=== PATIENT | male | born 1950 ===

== ENCOUNTER 2017-07-14 19:59 | Emergency (ER) | payer BC ==
[2017-07-14 20:21] VITALS: BP 146/78
--- NOTE | 2017-07-14 20:35 | ED ---
HPI Febrile Illness - HPI Summary HPI Summary: 67 yo WM c/o f/c associated with sore throat cough with green sputum x 3 days - History of Current Complaint Chief Complaint: UCGeneralIllness Time Seen by Provider: 07/14/17 20:27 Hx Obtained From: Patient Timing: Constant, Lasting Days Initial Severity: Moderate Current Severity: Moderate Pain Intensity: 0 Aggravating Factors: Unknown Alleviating Factors: Nothing Associated Signs and Symptoms: Negative - Allergy/Home Medications Allergies/Adverse Reactions: Allergies Allergy/AdvReac Type Severity Reaction Status Date / Time No Known Allergies Allergy Verified 07/14/17 20:21 PMH/Surg Hx/FS Hx/Imm Hx Previously Healthy: Yes Endocrine/Hematology History: Reports: Hx Diabetes - type 2 Denies: Hx Thyroid Disease Cardiovascular History: Denies: Hx Hypertension Respiratory History: Denies: Hx Asthma, Hx Chronic Obstructive Pulmonary Disease (COPD) GI History: Denies: Hx Ulcer - Surgical History Surgery Procedure, Year, and Place: nasal polyps removed Infectious Disease History: Yes Infectious Disease History: Reports: Hx Hepatitis - as a child Denies: Hx Human Immunodeficiency Virus (HIV), History Other Infectious Disease, Traveled Outside the in Last 30 Days - Social History Alcohol Use: Rare Substance Use Type: Reports: None Smoking Status (MU): Former Smoker Type: Cigarettes Have You Smoked in the Last Year: No Review of Systems Positive: Fever, Chills, Fatigue Eyes: Negative ENT: Negative Cardiovascular: Negative Positive: Cough - with green sputum Gastrointestinal: Negative Genitourinary: Negative Musculoskeletal: Negative Skin: Negative Neurological: Negative All Other Systems Reviewed And Are Negative: Yes Physical Exam Triage Information Reviewed: Yes Vital Signs On Initial Exam: Initial Vitals Temp Pulse Resp BP Pulse Ox 38.7 C 95 20 146/78 95 07/14/17 20:14 07/14/17 20:14 07/14/17 20:14 07/14/17 20:14 07/14/17 20:14 Vital Signs Reviewed: Yes Appearance: Positive: Ill-Appearing Skin: Positive: Warm Eyes: Positive: Normal ENT: Positive: Normal ENT inspection Respiratory/Lung Sounds: Positive: Rhonchi - with cough Cardiovascular: Positive: Tachycardia, S1, S2 Abdomen Description: Positive: Soft Musculoskeletal: Positive: Normal Neurological: Positive: Normal Psychiatric: Positive: Normal Diagnostics - Vital Signs Vital Signs Temp Pulse Resp BP Pulse Ox 07/14/17 20:14 38.7 C 95 20 146/78 95 - Laboratory Lab Statement: Any lab studies that have been ordered have been reviewed, and results considered in the medical decision making process. Course/Dx - Course Course Of Treatment: Rapid Flu A positive, CXR with B/L perihilar infiltrates, may progress to PNA from bronchitis. Will double cover with Tamiflu and Levaquin - Diagnoses Provider Diagnoses: Influenza A with pneumonia Discharge - Sign-Out/Discharge Documenting (check all that apply): Discharge/Admit/Transfer - Discharge Plan Condition: Stable Disposition: HOME Prescriptions: Levofloxacin TAB* [Levaquin TAB*] 750 mg PO DAILY 7 Days #7 tab Oseltamivir CAP* [Tamiflu CAP*] 75 mg PO BID 5 Days #10 cap Patient Education Materials: Influenza (ED), Acute Bronchitis (ED) Referrals: Abdirashid Byrd MD [Primary Care Provider] - - Billing Disposition and Condition Condition: STABLE Disposition: HOME
[2017-07-14] MEDS ORDERED: Acetaminophen TAB* 325 MG PO ONE (20:41)
[2017-07-14] MEDS ORDERED: Levofloxacin TAB* 250 MG PO ONE (21:08)
[2017-07-14] MEDS ORDERED: Oseltamivir CAP* 75 MG CAP PO ONE (21:08)
--- NOTE | 2017-07-14 21:21 | RAD ---
Indication: Cough. 2 views of the chest including dual energy PA views demonstrate no mediastinal shift. Heart is of normal size and configuration. Lung stoner demonstrate no pleural fluid, pneumonia or pneumothorax. IMPRESSION: No active cardiopulmonary disease is noted.
== END 2017-07-14 21:05 | disposition home or self-care (01) ==
LOC: UCEAST 19:59
DX: J10.1 Influenza due to other identified influenza virus with other respiratory manifestations (principal); J18.9 Pneumonia, unspecified organism; E11.9 Type 2 diabetes mellitus without complications; Z79.84 Long term (current) use of oral hypoglycemic drugs; Z79.4 Long term (current) use of insulin; Z87.891 Personal history of nicotine dependence
CPT/HCPCS: 71046; 87502; 99212; A9270-GY; G0463

== ENCOUNTER 2017-12-02 07:30 | Inpatient (IN) | payer BC, MEDICARE ==
--- NOTE | 2017-11-27 14:25 | HP ---
HISTORY AND PHYSICAL: DATE OF ADMISSION/SURGERY: 12/02/17 DATE OF OFFICE VISIT: 11/25/17 SURGEON: Danae Moura MD * (DICTATED BY BLAS TITUS) PROCEDURE: Right total knee arthroplasty. CHIEF COMPLAINT: Right knee pain. HISTORY OF PRESENT ILLNESS: Mr. Eugene is a 67-year-old gentleman with complaints of right knee pain. He has failed conservative treatment and elected to proceed with a right total knee arthroplasty. PAST MEDICAL HISTORY: Diabetes, hypertension, BPH, sleep apnea, and hyperlipidemia. PAST SURGICAL HISTORY: Kidney stone removal and nasal polyp removal. CURRENT MEDICATIONS: 1. Losartan potassium 50 mg daily. 2. Pravastatin sodium 80 mg q.h.s. 3. Potassium citrate 10 mEq 2 times a day. 4. Glipizide ER 10 mg. 5. Hydrochlorothiazide 12.5 mg daily. 6. Metformin 1000 mg 2 times a day. 7. Lantus. 8. Aleve. 9. Aspirin 81 mg. ALLERGIES: No known drug allergies. FAMILY HISTORY: Diabetes and heart disease. SOCIAL HISTORY: He is a 67-year-old gentleman, lives with his . He does not smoke or use drugs, uses occasional alcohol. REVIEW OF SYSTEMS: A complete 14-point review of systems was reviewed with the patient. It was positive for diabetes and he reports having hepatitis as a child. He denies a history of DVT, PE, HIV, or anesthesia problems. PHYSICAL EXAMINATION GENERAL: He is well developed, well nourished, in no acute distress. VITAL SIGNS: He stands 68 inches tall, weighs 293 pounds. His blood pressure is 138/82, his heart rate is 84. HEENT: Normocephalic, atraumatic. NECK: Supple. No palpable lymph nodes. PULMONARY: The lungs are clear to auscultation bilaterally. CARDIO: Regular rate and rhythm. Strong S1, S2. ABDOMEN: Soft, nontender, and nondistended. MUSCULOSKELETAL: Right lower extremity: The skin is intact. There are no open wounds or abrasions. There is a moderate joint effusion. Range of motion is 20 to 110 degrees of flexion with patellofemoral crepitus. He has a 2+ dorsalis pedis pulse, intact sensation in his lower extremity. Muscle group strengths are intact at 5/5. NEUROLOGICAL: He is alert and oriented x3. ASSESSMENT AND PLAN: Mr. Eugene is a 67-year-old gentleman with end-stage osteoarthritis of the right knee. He has failed conservative treatment and elected to proceed with a right total knee arthroplasty. The surgery is scheduled for 12/02/[address] Moura discussed the risks and benefits of the surgery and he has elected to proceed. He will follow up with Dr. Moura 2 weeks after the surgery. We will use TXA with this patient. BLAS TITUS [id number]/[facility] #: [id number] MTDJosé Miguel
[~2017-12-02 07:30] MED LIST: Buffered Lidocaine 0.9% SYRIN* 5 ML/SYR SYRINGE INTRADERM ONE; Tranexamic Acid 1,000 MG in NS 0.9% 50 ML* (outpatient use) IV SCH
[2017-12-02] MEDS ORDERED: ceFAZolin 2 GM in NS PREMIX(*) 2 GM/100 ML BAG IVPB ONE (09:08)
[2017-12-02] MEDS ORDERED: fentaNYL* 50 MCG/ML 2 ML VIAL (100 MCG VIAL) ONE (09:26)
[2017-12-02] MEDS ORDERED: Midazolam* 1 MG/ML 2 ML VIAL (2 MG) ONE (09:26)
[2017-12-02] MEDS ORDERED: Propofol* 10 MG/ML 20 ML BTL IV PUSH ONE ×3 (09:57→13:18)
[2017-12-02] MEDS ORDERED: Lidocaine 1%* 5 ML VIAL ONE (10:27)
[2017-12-02] MEDS ORDERED: ROPIVACAINE 5 MG/ML 30 ML BTL (0.5%) ONE ×2 (10:27→10:31)
[2017-12-02] MEDS ORDERED: Lidocaine 1% INJ* 10 MG/ML 30 ML SDV ONE (11:11)
[2017-12-02] MEDS ORDERED: Acetaminophen TAB* 325 MG PO PRN (11:57)
[2017-12-02] MEDS ORDERED: diPHENhydraMINE IV* 50 MG/ML 1 ml VIAL (BENADRYL) IV PRN ×2 (11:57→13:59)
[2017-12-02] MEDS ORDERED: HYDROcodone/ACETAMIN 5-325 MG* 1 TAB PO PRN (11:57)
[2017-12-02] MEDS ORDERED: DiMENhydriNATE IV* 50 MG/ML VIAL IV PUSH PRN (11:57)
[2017-12-02] MEDS ORDERED: Naloxone* 0.4 MG/ML 1 ML VIAL IV PRN (11:57)
[2017-12-02] MEDS ORDERED: Morphine INJ* 2 MG/ML 1 ML SYRINGE (TWO MG - NEW SYRINGE VERSION) IV PRN (11:57)
[2017-12-02] MEDS ORDERED: Ondansetron INJ* 2 MG/ML VIAL IV PRN ×2 (11:57→13:59)
[2017-12-02] MEDS ORDERED: fentaNYL* 50 MCG/ML 2 ML VIAL (100 MCG VIAL) IV PRN (11:57)
[2017-12-02] MEDS ORDERED: Lidocaine 2% PF * 5 ML VIAL ONE (12:23)
[2017-12-02] MEDS ORDERED: Bupivacaine-MPF SPINAL* 7.5 MG/ML - 2ML AMP ONE (13:03)
[2017-12-02] MEDS ORDERED: Magnesium Hydroxide LIQ* 30 ML UDC PO PRN (13:59)
[2017-12-02] MEDS ORDERED: Polyethylene Glycol 3350* 17 GM PACKET PO PRN (13:59)
[2017-12-02] MEDS ORDERED: oxyCODONE/Acetamin 5/325 MG* TAB PO PRN (13:59)
[2017-12-02] MEDS ORDERED: Ondansetron TAB* 4 MG PO PRN (13:59)
[2017-12-02] MEDS ORDERED: Bisacodyl SUPP* 10 MG SUPP PR PRN (13:59)
[2017-12-02] MEDS ORDERED: Dextrose 50% Syringe 50 ML* 25 GM/50 ML SYRINGE IV PUSH PRN (14:50)
--- NOTE | 2017-12-02 15:02 | RAD ---
INDICATION: Status post total right knee replacement surgery. COMPARISON: Comparison is made with a prior study from October 21, 2017. TECHNIQUE: 2 views of the right knee were obtained. FINDINGS: The patient is status post total right knee replacement surgery. The bones and prostheses are in normal alignment. There is no evidence for loosening. IMPRESSION: STATUS POST TOTAL RIGHT KNEE REPLACEMENT SURGERY.
[2017-12-02 15:03] LABS: Urine Appearance Turbid; Urine Blood Negative (Negative); Urine Color Yellow; Urine Ketones Negative (Negative); Urine Protein Negative (Negative); Urine Specific Gravity 1.025 (1.010-1.030); Urine Urobilinogen Negative (Negative)
[2017-12-02] MEDS ORDERED: diPHENhydraMINE IV* 50 MG/ML 1 ml VIAL (BENADRYL) ONE (15:37)
--- NOTE | 2017-12-02 15:40 | PN ---
Progress Note - Progress Note Date of Service: 12/02/17 Note: Patient resting comfortably. no complaints of pain, denies SOB/chest pain, incision c/d/i; able to dorsi flex/plantar flex, 2+ DP pulse, intact sensation
[2017-12-02] MEDS: Acetaminophen TAB* 325 MG PO SCH ×2 (16:14→21:44)
[2017-12-02] MEDS: Insulin LISPRO* 1 UNITS UNIT SUBCUT SCH ×2 (16:55→21:33)
[2017-12-02] MEDS: oxyCODONE TAB* 5 MG TAB PO PRN ×2 (16:59→23:03)
[2017-12-02] MEDS ORDERED: metFORMIN* 1,000 MG TAB PO SCH (17:00)
[2017-12-02] MEDS ORDERED: Warfarin TAB(*) 6 MG PO ONE (17:00)
[2017-12-02] MEDS: Losartan TAB* 25 MG PO SCH (17:09)
[2017-12-02] MEDS: Hydrochlorothiazide TAB* 25 MG PO SCH (17:09)
[2017-12-02] MEDS ORDERED: HYDROCHLOROTHIAZIDE PO SCH ×2 (18:00)
[2017-12-02] MEDS ORDERED: LOSARTAN PO SCH ×2 (18:00)
[2017-12-02] MEDS: Cyclobenzaprine TAB* 10 MG PO PRN ×2 (18:14→23:03)
[2017-12-02] MEDS: Morphine INJ* 2 MG/ML 1 ML SYRINGE (TWO MG - NEW SYRINGE VERSION) IV PRN ×3 (18:38→23:47)
[2017-12-02] MEDS: oxyCODONE/Acetamin 5/325 MG* TAB PO PRN (19:36)
[2017-12-02] MEDS: ceFAZolin 1 GM in Dextrose (*) 1 GM/50 ML BAG IVPB SCH (19:46)
[2017-12-02] MEDS: traMADol TAB* 50 MG PO PRN (20:24)
[2017-12-02] MEDS ORDERED: Insulin GLARGINE(*) 1 UNITS UNIT SUBCUT SCH ×2 (21:00)
[2017-12-02] MEDS: Docusate CAP* 100 MG PO SCH (21:31)
[2017-12-02] MEDS: Magnesium Hydroxide LIQ* 30 ML UDC PO SCH (21:31)
[2017-12-02] MEDS: Atorvastatin* 20 MG TAB PO SCH (21:44)
[2017-12-02] MEDS: Potassium Citrate (NF) 10 MEQ TAB PO SCH (21:44)
--- NOTE | 2017-12-02 23:33 | CONS ---
CC: Dr. Cleary; Dr. Danae Moura CONSULTATION REPORT: DATE OF CONSULT: 12/02/17 PRIMARY CARE PROVIDER: Dr. Cleary. REQUESTING PHYSICIAN: Dr. Danae Moura. HISTORY OF PRESENT ILLNESS: Mr. Eugene is a 67-year-old male with a past medical history of obstr uctive sleep apnea, on CPAP; arthritis; morbid obesity with a BMI of 45; nephrolithiasis; history of tobacco abuse; BPH; type 2 diabetes; hyperlipidemia, who was being followed as an outpatient by Dr. Tila christian with complaints of right knee pain. He failed conservative treatment and was admitted today for an elective right total knee arthroplasty. The hospitalist service was consulted to help manage his comorbidities. The patient was evaluated in the PACU and he is alert and awake and states that he is feeling well. Denies any pain, shortness of breath, palpitations. PAST MEDICAL HISTORY: 1. Obstructive sleep apnea, on CPAP. 2. Osteoarthritis. 3. Morbid obesity with a BMI of 45. 4. Nephrolithiasis. 5. History of tobacco abuse. 6. BPH. 7. Type 2 diabetes. 8. Hyperlipidemia. 9. Hypertension. MEDICATION LIST: 1. Aspirin 81 mg p.o. at bedtime. 2. Glipizide 10 mg p.o. q.a.m. 3. Losartan/hydrochlorothiazide 100/12.5 one tablet p.o. at bedtime. 4. Metformin 1000 mg p.o. b.i.d. 5. Naproxen 440 mg p.o. daily. 6. Potassium citrate 10 mEq p.o. b.i.d. 7. Pravastatin 80 mg p.o. at bedtime. 8. Lantus 75 units subcutaneously at bedtime. ALLERGIES: No known drug allergies. FAMILY HISTORY: The patient's mother had a history of hypertension and diabetes. The patient's fathe r had a history of heart disease. Sister and brother both have diabetes. SOCIAL HISTORY: The patient was a smoker, 2 packs a day for 40 years and he quit in 2006. He has 1 to 2 beers a week. No history of drug use. Surrogate decision maker is his , Kylah Eugene, shania omar number is [phone]. REVIEW OF SYSTEMS: A 14-point review of systems was performed and all the pertinent negative and pos itive findings are in the HPI. PHYSICAL EXAM: Vital Signs: Temperature 98.2, heart rate is 64, respiratory rate 17, oxygen saturat ion is 98% on room air, blood pressure is 123/68. General: The patient is a pleasant, morbidly obes e gentleman, lying in bed, in no acute distress. HEENT: Pupils are equal. Moist mucous membranes. CVS: Normal S1, S2. Regular rate and rhythm. Chest: Breath sounds bilaterally with no added sound s. Abdomen is obese. Bowel sounds present. Extremities: The patient has a Cryo unit to the right k nee. Good capillary refills. Sensation is intact. Neuro: He is alert and oriented x3. Able to mo ve all 4 extremities. ASSESSMENT AND PLAN: Mr. Eugene is a 67-year-old male with a past medical history of obstructive sleep apnea, on CPAP; arthritis; morbid obesity with a BMI of 45; nephrolithiasis; prior history of t obacco abuse; benign prostatic hypertrophy; type 2 diabetes; hyperlipidemia, who was admitted for an elective right total knee arthroplasty. 1. Right total knee arthroplasty. Management will be as per Ortho. 2. Type 2 diabetes. I am going to hold the patient's metformin and glipizide for now. He will be c ontinued on a lower dose Lantus plus lispro sliding scale. Depending on his oral intake and glucose, we will adjust his medication dose. 3. Hypertension. We will continue his losartan/hydrochlorothiazide with holding parameters and we w ill monitor his blood pressure. 4. Obstructive sleep apnea. The patient brought his CPAP from home and he will wear it at night and during naps. 5. Hyperlipidemia. We will continue pravastatin. 6. DVT prophylaxis will be with Lovenox and warfarin as per Ortho. 7. Code status is full. TIME SPENT: Approximately 40 minutes was spent with the patient and 's interview, medical records review, physical examination to complete this consultation, more than half of this time was spent [id number] with the patient and coordination of care. [id number]/[facility] #: [id number]
[2017-12-03] MEDS: oxyCODONE/Acetamin 5/325 MG* TAB PO PRN ×5 (02:45→21:48)
[2017-12-03] MEDS: ceFAZolin 1 GM in Dextrose (*) 1 GM/50 ML BAG IVPB SCH ×2 (02:52→12:24)
[2017-12-03] MEDS: Acetaminophen TAB* 325 MG PO SCH ×3 (04:56→22:01)
[2017-12-03 06:00] LABS: Hematocrit 36 % (42-52); Hemoglobin 12.5 g/dl (14.0-18.0); Mean Platelet Volume 8.3 um3 (7.4-10.4); Platelet Count 131 10^3/ul (150-450)
[2017-12-03 06:04] LABS: INR 1.14 (0.77-1.02)
[2017-12-03 06:15] LABS: EGFR Non-African American 100.8 (>60)
[2017-12-03] MEDS: traMADol TAB* 50 MG PO PRN (06:21)
[2017-12-03] MEDS: Potassium Citrate (NF) 10 MEQ TAB PO SCH ×2 (07:28→21:43)
[2017-12-03] MEDS: Docusate CAP* 100 MG PO SCH ×2 (07:33→21:47)
[2017-12-03] MEDS: Magnesium Hydroxide LIQ* 30 ML UDC PO SCH ×2 (07:33→21:48)
[2017-12-03] MEDS: Insulin LISPRO* 1 UNITS UNIT SUBCUT SCH ×6 (08:34→21:50)
[2017-12-03] MEDS: glipiZIDE TAB.XL* 5 MG PO SCH (08:34)
[2017-12-03] MEDS ORDERED: glipiZIDE TAB.XL* 5 MG PO SCH (09:00)
--- NOTE | 2017-12-03 09:26 | PN ---
Progress Note - Progress Note Date of Service: 12/03/17 SOAP: Subjective: [Pt was seen this morning after PT. States he is having some pain from moving about but finds that otherwise he is doing well. He denies any nausea, vomiting , SOB or chest pain.] Objective: [General: A&Ox3, NAD MSK, RLE: Dressing is c/d/i without surrounding erythema. +df/pf. calf is soft and non tender. NVI with a 2+ DP pulse. Vital Signs Temp 99.3 F 12/03/17 02:57 Pulse 67 12/03/17 02:57 Resp 16 12/03/17 08:36 BP 152/57 12/03/17 02:57 Pulse Ox 96 12/03/17 02:57 Intake & Output 12/02/17 12/03/17 12/03/17 18:59 06:59 18:59 Intake Total 2210 2090 230 Output Total 400 1200 Balance 1810 890 230 Weight 287 lb Intake: IV Fluids 1700 990 1GM TRANEXAMIC ACID 100 LR 1500 990 NS 100ML, Cefazolin 2G 100 IVPB 100 ABX - CEFAZOLIN 100 Oral 510 1000 230 Output: Brower 250 1200 Estimated Blood Loss 150 ] Assessment: [POD 1: RTKA ] Plan: [Finish post op abx Continue with PT/OT COntinue with current pain medication Possible DC tomorrow to home INR of 1.14 - lovenox today, warfarin 8mg tonight ]
[2017-12-03] MEDS: oxyCODONE TAB* 5 MG TAB PO PRN (09:52)
--- NOTE | 2017-12-03 11:01 | PN ---
Subjective Date of Service: 12/03/17 Interval History: HOSPITALIST PROGRESS NOTE Patient seen and examined at bedside. He feels well today. Has more pain now as he just returned from his 1st walk with PT. No CP, palpitations, or dyspnea. Tolerating diet well with no N/V. Family History: Unchanged from Admission Social History: Unchanged from Admission Past Medical History: Unchanged from Admission Objective Active Medications: Acetaminophen (Tylenol Tab*) 975 mg PO Q8H [facility] Last Admin: 12/03/17 04:56 Dose: Not Given Atorvastatin Calcium (Lipitor*) 20 mg PO BEDTIME [facility] Last Admin: 12/02/17 21:44 Dose: 20 mg Bisacodyl (Dulcolax Supp*) 10 mg W[place] DAILY PRN PRN Reason: constipation Cyclobenzaprine HCl (Flexeril Tab*) 10 mg PO TID PRN PRN Reason: SPASMS Last Admin: 12/02/17 23:03 Dose: 10 mg Dextrose (D50w Syringe 50 Ml*) 12.5 gm IV PUSH .FOR FS < 60 - SS PRN PRN Reason: FS < 60 Diphenhydramine HCl (Benadryl Iv*) 12.5 mg IV Q6H PRN PRN Reason: PRURITIS Docusate Sodium (Colace Cap*) 100 mg PO BID [facility] Last Admin: 12/03/17 07:33 Dose: 100 mg Enoxaparin Sodium (Lovenox(*)) 40 mg SUBCUT Q24H [facility] Glipizide (Glucotrol Xl*) 5 mg PO DAILY WITH MEAL [facility] Last Admin: 12/03/17 08:34 Dose: 5 mg Hydrochlorothiazide (Hydrodiuril Tab*) 12.5 mg PO 1800 [facility] Last Admin: 12/02/17 17:09 Dose: Not Given Cefazolin Sodium/Dextrose (Kefzol 1 Gm In Dextrose Duplex (*)) 1 gm in 50 mls @ 200 mls/hr IVPB Q8H [facility] Stop: 12/03/17 11:44 Last Admin: 12/03/17 02:52 Dose: 200 mls/hr Lactated Ringer's (Lactated Ringers 1000 Ml Bag*) 1,000 mls @ 100 mls/hr IV PER RATE [facility] Last Admin: 12/03/17 02:45 Dose: 100 mls/hr Insulin Glargine (Lantus(*)) 75 units SUBCUT BEDTIME [facility] Insulin Human Lispro (Humalog*) 0 units SUBCUT ACHS [facility]; Protocol Last Admin: 12/03/17 08:34 Dose: 6 units Lactulose (Lactulose*) 30 ml PO Q6H PRN PRN Reason: constipation Losartan Potassium (Cozaar Tab*) 100 mg PO 1800 [facility] Last Admin: 12/02/17 17:09 Dose: Not Given Magnesium Hydroxide (Milk Of Magnesia Liq*) 30 ml PO BID [facility] Last Admin: 12/03/17 07:33 Dose: 30 ml Magnesium Hydroxide (Milk Of Magnesia Liq*) 30 ml PO Q6H PRN PRN Reason: constipation Morphine Sulfate (Morphine Inj ((Syringe))*) 2 mg IV Q2H PRN PRN Reason: PAIN - SEVERE Last Admin: 12/02/17 23:47 Dose: 2 mg Ondansetron HCl (Zofran Inj*) 4 mg IV Q6H PRN PRN Reason: nausea Ondansetron HCl (Zofran Tab*) 4 mg PO Q6H PRN PRN Reason: NAUSEA Oxycodone HCl (Roxycodone Tab*) 10 mg PO Q4H PRN PRN Reason: SEVERE PAIN Last Admin: 12/03/17 09:52 Dose: 10 mg Oxycodone/Acetaminophen (Percocet 5/325 Tab*) 1 tab PO Q4H PRN PRN Reason: PAIN Oxycodone/Acetaminophen (Percocet 5/325 Tab*) 2 tab PO Q4H PRN PRN Reason: PAIN Last Admin: 12/03/17 07:33 Dose: 2 tab Polyethylene Glycol/Electrolytes (Miralax*) 17 gm PO DAILY PRN PRN Reason: Constipation Potassium Citrate (Urocit-K 10 (Nf)) 10 meq PO BID [facility] Last Admin: 12/03/17 07:28 Dose: Not Given Tramadol HCl (Ultram*) 50 mg PO Q6H PRN PRN Reason: PAIN Last Admin: 12/03/17 06:21 Dose: 50 mg Vital Signs - 8 hr 12/03/17 12/03/17 12/03/17 02:57 04:56 06:21 Temperature 99.3 F Pulse Rate 67 Respiratory 16 16 18 Rate Blood Pressure 152/57 (mmHg) O2 Sat by Pulse 96 Oximetry 12/03/17 12/03/17 12/03/17 07:33 07:40 07:42 Temperature Pulse Rate Respiratory 16 16 16 Rate Blood Pressure (mmHg) O2 Sat by Pulse Oximetry 12/03/17 12/03/17 12/03/17 08:04 08:36 09:52 Temperature 98.9 F Pulse Rate 73 Respiratory 18 16 16 Rate Blood Pressure 139/73 (mmHg) O2 Sat by Pulse 93 Oximetry Oxygen Devices in Use Now: None Appearance: Pleasant morbid obese gentleman sitting up in a chair in NAD. Eyes: No Scleral Icterus Ears/Nose/Mouth/Throat: Mucous Membranes Moist Neck: Trachea Midline Respiratory: Symmetrical Chest Expansion and Respiratory Effort, Clear to Auscultation Cardiovascular: RRR - Normal S1 and S2 Extremities: - - CDI to right knee. Good capillary refill. Calf is soft and not tender Neurological: Alert and Oriented x 3, NL Muscle Strength and Tone Result Diagrams: 12/03/17 05:33 12/03/17 05:33 Assess/Plan/Problems-Billing Assessment: Mr. Eugene is a 67 yo M with PMH of morbid obesity with BMI 42, HTN, HLD, DM , LINDA on CPAP, BPH, admitted for elective right TKR. - Patient Problems (1) History of total right knee replacement Comment: - Management as per Ortho. (2) Type 2 diabetes mellitus Comment: - Increase Lantus to 75 units, resume Glipizide and continue Lispro SS. (3) HTN (hypertension) Comment: - Controlled. - Continue Losartan/HCTZ. (4) HLD (hyperlipidemia) Comment: - Continue statin. (5) LINDA (obstructive sleep apnea) Comment: - Continue CPAP at night and for naps. (6) DVT prophylaxis Comment: - Lovenox/Warfarin as per Ortho. (7) Full code status Status and Disposition: Hospitalist service will continue to follow.
[2017-12-03] MEDS ORDERED: Dextrose 50% Syringe 50 ML* 25 GM/50 ML SYRINGE IV PUSH PRN (11:04)
[2017-12-03] MEDS: Enoxaparin(*) 40 MG/0.4 ML SYR SUBCUT SCH (12:24)
[2017-12-03] MEDS ORDERED: Warfarin TAB(*) 4 MG PO ONE (17:00)
[2017-12-03] MEDS: Hydrochlorothiazide TAB* 25 MG PO SCH (18:07)
[2017-12-03] MEDS: Losartan TAB* 25 MG PO SCH (18:07)
[2017-12-03] MEDS ORDERED: Insulin GLARGINE(*) 1 UNITS UNIT SUBCUT SCH (21:00)
[2017-12-03] MEDS: Atorvastatin* 20 MG TAB PO SCH (21:47)
--- NOTE | 2017-12-03 22:55 | OP ---
DATE OF OPERATION: 12/02/17 - ROOM #341 DATE OF : 50 SURGEON: Danae Moura MD OUTSIDE FOOD SERVER: BLAS Escalona. Ms. Montalvo did help throughout the procedure with preparation of the leg, wound retraction, manipulation of the knee, and wound closure. ANESTHESIOLOGIST: Dr. Wick. ANESTHESIA: Spinal. PRE-OP DIAGNOSIS: Severe end-stage degenerative osteoarthritis of the right knee joint with varus deformity. POST-OP DIAGNOSIS: Severe end-stage degenerative osteoarthritis of the right knee joint with varus deformity. OPERATIVE PROCEDURE: Right total knee arthroplasty. COMPLICATIONS: None. ESTIMATED BLOOD LOSS: 300 cc. TOURNIQUET TIME: 62 minutes. SPECIMENS: Bone and cartilage from the right knee joint sent to Pathology. HARDWARE USED: This is cemented [employer] total knee arthroplasty hardware. Two packages of simplex bone cement. For the femur, a size 7 right posterior stabilized Legion Oxinium femoral component. For the tibia, a size 6 right tibial base plate. For the patella, a 32 mm 3-peg all poly patella and for the insert, a 9-mm posterior stabilized articular insert size 5/6. BRIEF HISTORY/INDICATIONS: Mr. Eugene is a 67-year-old gentleman with years of increasingly severe right knee pain and varus deformity. Radiographs showed severe arthritis of [id number] contact. He failed conservative treatment with the anti-inflammatories, pain medications, intra-articular injection, and physical therapy. He elected to undergo right total knee arthroplasty due to continued pain and decreased quality of life. INTRAOPERATIVE FINDINGS: Intraoperatively, the patient's knee was extremely deformed due to chronic varus deformity and excessive osteophyte formation. He had no ACL. He had medial tibial plateau bone wear. DESCRIPTION OF PROCEDURE: Mr. Eugene was identified in the preanesthesia unit. His right lower extremity was marked as the correct operative side. Informed consent was signed and placed in the chart. The patient was taken to the operating room and placed under spinal anesthesia without difficulty. Brower catheter was placed. Tourniquet was placed on the right thigh. Right lower extremity was prepped and draped in the usual sterile fashion. Preop time -out was made to correctly identify the patient's side and site. Appropriate perioperative antibiotics were given within 1 hour of incision. A midline incision was made with a #10 blade and carried down to the extensor mechanism. A new 10 blade was used to make a standard medial parapatellar arthrotomy. The patella was difficult to sublux because of extreme osteophyte formation. Osteophytes were removed with a rongeur. 9 mm of patellar bone and cartilage was carefully removed using an oscillating saw. Attention was turned back to presentation of the femur. The knee was flexed up. The anterior horn of the lateral meniscus was released. There was no ACL. A drill was used to enter the distal femur. Intramedullary distal femoral cutting guide was pinned on the distal femur. Oscillating saw was used to make the distal femoral cut. Next, the external rotation guide was pinned on the distal femur and the distal femur was sized to a size 7. Size 7 multi-cutting jig was pinned on the distal femur. Oscillating saw was used to make the appropriate chamfer cuts. Many osteophytes were carefully removed around the tibia. There were multiple loose bodies in the back of the joint capsule and these were removed. The PCL was released and the tibia was subluxed anteriorly. Extramedullary tibial cutting guide was pinned on the proximal tibia. Oscillating saw was used to make the proximal tibial cut perpendicular to the mechanical axis of the tibia. The bone was carefully removed. The knee was brought out into full extension. There was some tightness medially , therefore some soft tissue release was performed as well as removal of any remaining osteophytes along the femur and tibia. Medial and lateral ligaments were well balanced at this point. Spacer block fit with the knee in full extension. Flexion and extension gaps were well balanced. The knee was flexed up. Lamina color maker dyer was placed both medially and laterally. Any remaining meniscus was carefully removed using electrocautery. Curved osteotome was used to remove any remaining posterior osteophytes. Several additional loose bodies were identified and removed. Tibial tray and drop joleen were placed and once again confirmed a satisfactory tibial cut. A size 7 right femoral trial was impacted onto the distal femur and had good fit. The box for the posterior stabilized implant was prepared using a reamer and box cut osteotome. Size 6 tibial tray with a 9 mm insert trial was placed and the knee was taken through a range of motion. The knee had 0 to 130 degrees of flexion with satisfactory patellofemoral tracking. The patella was everted. Patella was sized to a size 32. Three peg holes were drilled through the size 32 guide. 32 patella was placed and the knee was taken through a range of motion. There was satisfactory patellofemoral tracking. All trials were carefully removed. Tibia was subluxed anteriorly and sized to a size 6. Proximal tibia was prepared using a size 6 keel punch. All bony cut surfaces were copiously irrigated with sterile saline and dried. Final implants were cemented into place starting with the tibia, followed by the femur, and last the patella. A 9-mm insert trial was placed while the knee was brought out into full extension. Tourniquet was turned down at 62 minutes. Electrocautery was used to obtain meticulous hemostasis. The knee was copiously irrigated with sterile saline. Once the cement had fully cured, the insert trial was removed. Any excess cement was removed from around the capsule and hardware. Final insert chosen was a 9-mm posterior stabilized articular insert. This was locked into position on the tibial tray. The stability of the insert was checked and rechecked, and noted to be stable. The knee was once again copiously irrigated with sterile saline. The extensor mechanism was closed using interrupted #1 Vicryl. The rest of the incision was closed in a layered fashion using 2-0 Vicryl. Skin was closed using running 3- 0 nylon. Sterile Xeroform, 4x4's, and Webril were used to cover the incision. Nathan wrap and cold pack were placed over this. The patient's anesthesia was reversed without difficulty. He was taken to the PACU in stable condition. Intended weightbearing will be weightbearing as tolerated. Intended DVT prophylaxis will be Coumadin with a Lovenox bridge. [id number]/[facility] #: [id number] [facility]
[2017-12-04] MEDS: oxyCODONE/Acetamin 5/325 MG* TAB PO PRN ×3 (02:12→10:24)
[2017-12-04 06:02] LABS: Hematocrit 34 % (42-52); Platelet Count 121 10^3/ul (150-450)
[2017-12-04 06:06] LABS: INR 1.29 (0.77-1.02)
[2017-12-04] MEDS: Acetaminophen TAB* 325 MG PO SCH (06:29)
[2017-12-04] MEDS: glipiZIDE TAB.XL* 5 MG PO SCH (08:04)
[2017-12-04] MEDS: Docusate CAP* 100 MG PO SCH (08:04)
[2017-12-04] MEDS: Magnesium Hydroxide LIQ* 30 ML UDC PO SCH (08:04)
[2017-12-04] MEDS: Insulin LISPRO* 1 UNITS UNIT SUBCUT SCH ×4 (08:14→12:46)
--- NOTE | 2017-12-04 09:21 | PN ---
Progress Note - Progress Note Date of Service: 12/04/17 SOAP: Subjective: [Pt was seen this morning sitting in bed before PT. States that his pain has decreased and is now manageable. He denies any nausea, vomiting, SOB or chest pain.] Objective: [General: A&Ox3, NAD MSK, RLE: Dressing changed today, incision is c/d/i without purulence or drainage. +df/pf. calf is soft and non tender. NVI with a 2+ DP pulse. Vital Signs Temp 97.9 F 12/04/17 07:30 Pulse 70 12/04/17 07:30 Resp 18 12/04/17 07:54 BP 147/56 12/04/17 07:30 Pulse Ox 97 12/04/17 07:54 Intake & Output 12/03/17 12/04/17 12/04/17 18:59 06:59 18:59 Intake Total 1387 560 Output Total 850 350 550 Balance 537 210 -550 Intake: IV Fluids 297 ABX - CEFAZOLIN 107 LR 190 Oral 1090 560 Output: Urine 850 350 550 Other: # Bowel Movements 0 # Voids 0 ] Assessment: [POD 2: RTKA ] Plan: Continue with PT/OT COntinue with current pain medication Possible DC today to home, will assess if he can take stairs in PT INR of 1.29 - lovenox today, warfarin 10mg tonight
[2017-12-04] MEDS: Potassium Citrate (NF) 10 MEQ TAB PO SCH (10:20)
[2017-12-04] MEDS: Enoxaparin(*) 40 MG/0.4 ML SYR SUBCUT SCH (12:42)
[2017-12-04 12:47] VITALS: BP 124/55
--- NOTE | 2017-12-06 02:22 | DS ---
DISCHARGE SUMMARY: DATE OF ADMISSION: 12/02/17 DATE OF DISCHARGE: 12/04/17 PROVIDER: Danae Moura MD.* (DICTATED BY BLAS JOE) ADMITTING DIAGNOSIS: Right knee osteoarthritis. HISTORY OF PRESENT ILLNESS: Mr. Eugene is a 67-year-old gentleman with complaints of right knee pain. He has failed conservative treatment and elected to proceed with right total knee arthroplasty which was performed on . HOSPITAL COURSE: On 12/02/17, Mr. Eugene was admitted to [facility] and underwent a right total knee arthroplasty with no complications. The patient recovered briefly in the postanesthesia care unit and was transferred to short-stay surgical unit in stable condition. On postop day #1, the patient's H and H was 12.5 and 36. The INR was 1.14 after 6 mg of Coumadin the night before. The pain was controlled with Percocet 5/325. The patient could demonstrate dorsiflexion and plantar flexion with good strength. On postop day #3, the urinary catheter was discontinued and the patient was able to void without difficulty. The incision was found to be benign with minimal drainage. No erythema or warmth. The patient's H and H was 12.0 and 34 with INR of 1.29 after 8 mg of Coumadin the night before. The patient's pain was again controlled with Percocet 5/325. Throughout the hospital course, the vital signs remained stable and the patient was afebrile. He was found to be stable and well-controlled for discharge. DISCHARGE CONDITION: Good. DISCHARGE MEDICATIONS: 1. Percocet 5/325. 2. Warfarin 2 mg tablets. 3. Colace 100 mg. HOME MEDICATIONS: 1. Losartan potassium 50 mg. 2. Pravastatin sodium 80 mg. 3. Potassium citrate 10 mEq. 4. Glipizide extended release 10 mg. 5. Hydrochlorothiazide 12.5 mg. 6. Metformin 1000 mg. 7. Lantus. 8. Aleve. 9. Aspirin 81 mg. DISCHARGE INSTRUCTIONS: 1. Weightbearing as tolerated. 2. Okay to shower on postop day #3. No bathing, swimming or submerging wounds. Use gentle soap and pat dry. Cover with gauze, Nathan wrap or tape. 3. Call orthopedic office for increased drainage, redness, increased pain or fever. Go to the ER with shortness of breath or chest pain. 4. Diet: Regular diet. Increase fluids and fiber to prevent constipation. Continue to use stool softeners or call office if no bowel motion within 48 hours. 5. Continue physical therapy and occupational therapy as shown. 6. Visiting home nurses to do wound checks and draw blood for INR on Tuesday and . 7. Coumadin dosing. Please note that you have been given 2 mg tablets. You will be provided with dose instructions on Mondays and . If you do not receive dosing instructions, please call our office straightaway. Please selin the dosing instructions on your calender as they are provided to you. Dosin mg of Coumadin tonight. To recheck tomorrow. 8. Pain control with Percocet 5/325 one to two tabs every 4 to 6 hours as needed for pain, maximum 10 caps per day. Please note that Percocet contains Tylenol, maximum daily dose of Tylenol is 4000 mg from all sources. 9. Antibiotics required prior to any dental work. 10. Follow up with Dr. Danae Moura in 10 to 14 days, call for an appointment. Please call our office with any questions or concerns at [phone]. BLAS JOE [id number]/CPS #: [id number] MTDD
== END 2017-12-04 13:23 | disposition home health service (06) | DRG 302 ==
LOC: AA 08:28 → SSU 14:00
PROVIDERS: ADMIT Orthopaedic Surgery Adult Reconstructive Orthopaedic Surgery; ATTEND Orthopaedic Surgery Adult Reconstructive Orthopaedic Surgery
PROC: 0SRC069 Replacement of Right Knee Joint with Oxidized Zirconium on Polyethylene Synthetic Substitute, Cemented, Open Approach (ICD-10-PCS; principal; 2017-12-02 10:00)
DX: M17.11 Unilateral primary osteoarthritis, right knee (principal); Z68.42 Body mass index [BMI] 45.0-49.9, adult; E66.01 Morbid (severe) obesity due to excess calories; E11.9 Type 2 diabetes mellitus without complications; I10 Essential (primary) hypertension; N40.0 Benign prostatic hyperplasia without lower urinary tract symptoms; E78.5 Hyperlipidemia, unspecified; G47.33 Obstructive sleep apnea (adult) (pediatric); M25.761 Osteophyte, right knee; Z79.84 Long term (current) use of oral hypoglycemic drugs; Z79.1 Long term (current) use of non-steroidal anti-inflammatories (NSAID); Z79.82 Long term (current) use of aspirin; Z79.4 Long term (current) use of insulin; Z79.899 Other long term (current) drug therapy; Z83.3 Family history of diabetes mellitus; Z82.49 Family history of ischemic heart disease and other diseases of the circulatory system; Z87.891 Personal history of nicotine dependence
CPT/HCPCS: 36415; 80048; 81003; 85014; 85018; 85049; 85610; A9270-GY; G8978-GP-CJ; G8978-GP-CK; G8979-GP-CI; J0690; J1200; J1650; J2250; J2270; J2704; J2795; J3010

== ENCOUNTER 2021-04-14 10:33 | Observation (INO) ==
[~2021-04-14 10:33] MED LIST changes: -Buffered Lidocaine 0.9% SYRIN* 5 ML/SYR SYRINGE INTRADERM ONE; +Buffered Lidocaine 1% SYRIN 1 ml INTRADERM ONE; +Lactated Ringers 1000 ml BAG 1,000 ML IV SCH; -Tranexamic Acid 1,000 MG in NS 0.9% 50 ML* (outpatient use) IV SCH
[2021-04-14] MEDS ORDERED: ceFAZolin 2 GM PREMIX 2 GM/50 ML BAG ONE (11:03)
[2021-04-14] MEDS ORDERED: ceFAZolin 1 GM ADVAN 1 GM ADDV.VIAL IVPB ONE (11:03)
[2021-04-14] MEDS ORDERED: Ropivacaine 5 MG/ML 20 ML VIAL 0.5% (100 MG) ONE (12:45)
[2021-04-14] MEDS ORDERED: diPHENhydraMINE 25 mg TAB PO PRN (14:35)
[2021-04-14] MEDS ORDERED: Lactulose 30 ml UDC PO PRN (14:35)
[2021-04-14] MEDS ORDERED: Morphine 2 MG/ML SYRINGE IV PRN (14:35)
[2021-04-14] MEDS ORDERED: Ondansetron 4 mg VIAL 2 MG/ML 2 ml VIAL IV PRN (14:35)
[2021-04-14] MEDS ORDERED: Ondansetron ODT 4 mg TAB 4 MG TAB PO PRN (14:35)
[2021-04-14] MEDS ORDERED: Magnesium Hydroxide LIQ 30 ML UDC PO PRN (14:35)
[2021-04-14] MEDS ORDERED: diPHENhydraMINE IV 50 MG/ML 1 ml VIAL (BENADRYL) IV PRN (14:35)
[2021-04-14] MEDS ORDERED: Dextrose 50% Syringe 50 ml 25 GM/50 ML SYRINGE IV PUSH PRN (14:40)
[2021-04-14] MEDS ORDERED: HYDROmorphone 1 MG/1 ML SYRINGE IV PRN (15:52)
[2021-04-14] MEDS ORDERED: DiMENhydriNATE IV 50 mg/ml 1 ml VIAL IV PUSH PRN (15:52)
[2021-04-14] MEDS ORDERED: oxyCODONE/Acetamin 5/325 mg TAB PO PRN (15:52)
[2021-04-14] MEDS ORDERED: Naloxone 0.4 mg VIAL 0.4 mg/ml 1 ml VIAL IV PRN (15:52)
[2021-04-14] MEDS: Lactated Ringers 1000 ml BAG 1,000 ML IV SCH (17:40)
[2021-04-14] MEDS: ceFAZolin 1 GM ADVAN 1 GM in NS 0.9% 50 ML 50 ML IVPB SCH (22:29)
[2021-04-14] MEDS: Magnesium Hydroxide LIQ 30 ML UDC PO SCH (22:31)
[2021-04-14] MEDS: POTASSIUM CITRATE 5 MEQ PO SCH (22:32)
[2021-04-15] MEDS: Lactated Ringers 1000 ml BAG 1,000 ML IV SCH (04:53)
[2021-04-15] MEDS: ceFAZolin 1 GM ADVAN 1 GM in NS 0.9% 50 ML 50 ML IVPB SCH ×2 (05:50→13:25)
[2021-04-15 06:21] LABS: Hematocrit 39 % (42-52); Hemoglobin 13.4 g/dL (14.0-18.0); Mean Platelet Volume 8.2 fL (7.4-10.4); Platelet Count 139 10^3/uL (150-450)
[2021-04-15 06:42] LABS: Calcium 8.8 mg/dL (8.6-10.3); Potassium 4.8 mmol/L (3.5-5.0); eGFR CKD-EPI 72.2 (>60)
[2021-04-15] MEDS: Magnesium Hydroxide LIQ 30 ML UDC PO SCH (08:38)
[2021-04-15] MEDS: Insulin ISOPH/REG 70/30 SUBCUT SCH ×2 (08:39→08:41)
[2021-04-15] MEDS: POTASSIUM CITRATE 5 MEQ PO SCH (08:41)
[2021-04-15] MEDS ORDERED: Empagliflozin (NF) 25 MG TABLET PO SCH (09:00)
[2021-04-15] MEDS ORDERED: Vitamin THERAPEUTIC TAB PO SCH (09:00)
[2021-04-15] MEDS ORDERED: Flu vaccine *QUAD* 2021-22* 0.5 ML SYRINGE IM ONE (09:00)
[2021-04-15 11:19] VITALS: BP 116/67
== END 2021-04-15 14:00 | disposition home or self-care (01) ==
LOC: INTOOBSV 10:33 → AA 10:33 → SSU 17:35
PROVIDERS: ADMIT Orthopaedic Surgery Adult Reconstructive Orthopaedic Surgery; ATTEND Orthopaedic Surgery Adult Reconstructive Orthopaedic Surgery